=== PATIENT | male | born 1970 | race Two or more races ===

== ENCOUNTER → 2021-02-03 | Emergency (ER) | payer OTHER ==
[~2021-02-03] VITALS: Ht 177.8 cm; Wt 95.3 kg
[~2021-02-03] MED LIST: ACETAMINOPHEN500 M1 PO; FISH OIL 1,0001 EAC4 PO; SIMVASTATIN20 MG PO
== END | disposition home or self-care (01) ==
LOC: ER 15:03
DX: S30.0XXA Contusion of lower back and pelvis, initial encounter (principal); W18.39XA Other fall on same level, initial encounter; Y93.89 Activity, other specified; Y92.098 Other place in other non-institutional residence as the place of occurrence of the external cause; Y99.8 Other external cause status; T78.49XA Other allergy, initial encounter